=== PATIENT | female | born 1980 | race African-American/Black ===

== ENCOUNTER 2020-10-07 15:00 | Inpatient (IN) | payer OTHER ==
[2020-10-07 16:28] LABS: BHCG - Serum Negative (NEGATIVE); Pregs Control Background? CLEAR/WHITE (CLR/WHITE); Pregs Control Bar Appear? YES (CONTROL BAR)
[2020-10-07 16:33] LABS: Anion Gap 12 mmol/L (10-20); BUN (Urea Nitrogen) 13 mg/dL (7.0-18.7); Calc. Creatinine Clearance 0 mL/min (70-130); Calcium 10.5 mg/dL (7.8-10.44); Carbon Dioxide 26 mmol/L (22-29); Chloride 103 mmol/L (98-107); Glucose 118 mg/dL (70-105); Hemoglobin 11.7 g/dL (12.0-15.5); Mean Corpuscular HGB CONC 32.4 g/dL (32.0-36.0); Mean Corpuscular Hemoglobin 27.5 pg (27.0-33.0); Mean Corpuscular Volume 84.9 fl (81.6-98.3); Mean Platelet Volume 9.8 fl (7.4-10.4); Platelet Count 366 10x3/uL (150-450); Potassium 3.3 mmol/L (3.5-5.1); RBC Distribution Width 14.3 % (11.5-14.5); Red Blood Cell (RBC) Count 4.25 10x6/uL (3.90-5.03); Sodium 138 mmol/L (136-145); White Blood Cell (WBC) Count 7.6 10x3/uL (3.5-10.5)
[2020-10-08 15:25] LABS: SARS-CoV-2 PCR by NAA Not Detected (NotDetected)
[2020-10-11 12:04] VITALS: BMI 38.0
[2020-10-12] MEDS ORDERED: EPINEPHrine 1 MG/ML AMP ONE (08:04)
[2020-10-12] MEDS ORDERED: Bupivacaine PF 0.5% 30 ML VIAL ONE (08:04)
[2020-10-12] MEDS ORDERED: Gabapentin 300 MG CAP ONE (08:33)
[2020-10-12] MEDS ORDERED: CeleCOXIB 100 MG CAP ONE (08:34)
[2020-10-12] MEDS ORDERED: Lidocaine 1% MPF 2 ML VIAL ONE (08:34)
[2020-10-12] MEDS ORDERED: Famotidine/PF 20 mg/2ml Vial ONE (08:34)
[2020-10-12] MEDS ORDERED: Midazolam HCl 2 mg/2 ml Vial ONE (09:13)
[2020-10-12] MEDS ORDERED: Lidocaine 1% PF 5 ML VIAL ONE (09:21)
[2020-10-12] MEDS ORDERED: Fentanyl 100 MCG/2 ML VIAL ONE ×2 (09:21→11:31)
[2020-10-12] MEDS ORDERED: PROPOFOL 20 ML ONE (09:21)
[2020-10-12] MEDS ORDERED: Rocuronium Bromide 10 MG/ML (10ML VIAL) ONE (09:21)
[2020-10-12] MEDS ORDERED: Lidocaine 2% Jelly 5 ML TUBE ONE (09:25)
[2020-10-12] MEDS ORDERED: Dexamethasone 20 MG/5 ML VIAL ONE (09:51)
[2020-10-12] MEDS ORDERED: PHENYLEPHRINE-NS 100 MCG/ML 10 ML SYRINGE ONE (10:00)
[2020-10-12] MEDS ORDERED: Midazolam HCl 2 mg/2 ml Vial SLOW IVP PRN (10:14)
[2020-10-12] MEDS ORDERED: Lidocaine 1% PF 5 ML VIAL FS SCH (10:15)
[2020-10-12] MEDS ORDERED: Ondansetron PF 4 MG/2 ML Vial ONE (10:51)
[2020-10-12] MEDS ORDERED: Glycopyrrolate 0.2 MG/ML 5 ML SYRINGE ONE (10:53)
[2020-10-12] MEDS ORDERED: Promethazine HCl 25 MG/ML VIAL IM PRN (11:01)
[2020-10-12] MEDS ORDERED: Ondansetron PF 4 MG/2 ML Vial IVP PRN (11:01)
[2020-10-12] MEDS ORDERED: diphenhydrAMINE 25 MG CAP PO PRN (11:01)
[2020-10-12] MEDS ORDERED: Bisacodyl 10 MG SUPP PR PRN (11:01)
[2020-10-12] MEDS ORDERED: Zolpidem Tartrate 5 MG TAB PO PRN (11:01)
[2020-10-12] MEDS ORDERED: ALPRAZolam 0.5 MG TAB PO PRN (11:04)
[2020-10-12] MEDS: Lactated Ringer's 1,000 ML IV SCH (13:19)
[2020-10-12] MEDS: Sodium Chloride 0.9% 1,000 ML IV SCH ×2 (13:24→21:40)
[2020-10-12] MEDS: hydrALAZINE 25 MG TAB PO SCH ×2 (16:26→21:42)
[2020-10-12] MEDS ORDERED: Gabapentin 300 MG CAP PO SCH (20:00)
[2020-10-12] MEDS ORDERED: CIDER VINEGAR 300 MG PO SCH (21:00)
[2020-10-12] MEDS ORDERED: [UNRECOGNIZED DRUG - OTHER] PO SCH (21:00)
[2020-10-12] MEDS: Rosuvastatin 10 MG TAB PO SCH (21:42)
[2020-10-12] MEDS: Simethicone Chewable 80 MG TAB PO PRN (21:43)
[2020-10-13] MEDS: Simethicone Chewable 80 MG TAB PO PRN ×2 (06:26→21:39)
[2020-10-13] MEDS: Sodium Chloride 0.9% 1,000 ML IV SCH ×4 (06:26→22:06)
[2020-10-13 06:37] LABS: Hemoglobin 10.5 g/dL (12.0-15.5); Mean Corpuscular HGB CONC 31.7 g/dL (32.0-36.0); Mean Corpuscular Hemoglobin 27.6 pg (27.0-33.0); Mean Corpuscular Volume 87.1 fl (81.6-98.3); Mean Platelet Volume 11.1 fl (7.4-10.4); Platelet Count 203 10x3/uL (150-450); White Blood Cell (WBC) Count 15.5 10x3/uL (3.5-10.5)
[2020-10-13] MEDS ORDERED: Losartan Potassium 50 MG TAB PO SCH (09:00)
[2020-10-13] MEDS: hydrALAZINE 25 MG TAB PO SCH ×3 (09:47→20:39)
[2020-10-13] MEDS: Hydrochlorothiazide 25 MG TAB PO SCH (09:48)
[2020-10-13] MEDS ORDERED: HYDROcodone/Acetaminophen 5/325 mg Tablet PO PRN (12:08)
[2020-10-13] MEDS ORDERED: fentaNYL Citrate/PF PCA SYRING 50 ML IV SCH (12:45)
[2020-10-13] MEDS: Lactated Ringer's 1,000 ML IV SCH (13:27)
[2020-10-13] MEDS: HYDROcodone/Acetaminophen 5/325 mg Tablet PO PRN ×2 (13:32→18:43)
[2020-10-13] MEDS: Ibuprofen 400 MG TAB PO PRN (14:58)
[2020-10-13] MEDS: Rosuvastatin 10 MG TAB PO SCH (21:43)
[2020-10-14] MEDS: HYDROcodone/Acetaminophen 5/325 mg Tablet PO PRN ×2 (00:57→08:18)
[2020-10-14] MEDS: Ibuprofen 400 MG TAB PO PRN (04:50)
[2020-10-14 07:51] VITALS: BP 129/70; TEMP 97.9
[2020-10-14] MEDS: hydrALAZINE 25 MG TAB PO SCH (08:17)
[2020-10-14] MEDS: Hydrochlorothiazide 25 MG TAB PO SCH (08:18)
== END 2020-10-14 09:15 | disposition home or self-care (01) | DRG 743 ==
LOC: CSHERHOLD 10-12 08:24 → OBSVTOIN 10-12 08:24 → INTOOBSV 10-12 08:24 → UNDOADMIN 10-12 08:24 → CSHPP 10-12 09:43 → CSHERHOLD 10-12 09:43
PROVIDERS: ADMIT Obstetrics & Gynecology; ATTEND Obstetrics & Gynecology
PROC: 0UT90ZL Resection of Uterus, Supracervical, Open Approach (ICD-10-PCS; principal; 2020-10-12)
PROC: 0UT70ZZ Resection of Bilateral Fallopian Tubes, Open Approach (ICD-10-PCS; 2020-10-12)
DX: D25.9 Leiomyoma of uterus, unspecified (principal); Z20.822 Contact with and (suspected) exposure to COVID-19; I10 Essential (primary) hypertension; E78.5 Hyperlipidemia, unspecified; D41.9 Neoplasm of uncertain behavior of unspecified urinary organ; Z79.899 Other long term (current) drug therapy
CPT/HCPCS: 36415; 80048; 84703; 85027; 86850; 86900; 86901; 88307; J0171; J0690; J1100; J2250; J2405; J2550; J2704; J3010; S0020; S0028; U0003; U0005